=== PATIENT | female | born 1975 | race Two or more races ===

== ENCOUNTER 2024-09-30 06:30 | Emergency (ER) | payer BC, SELFPAY ==
[2024-09-30 06:30] VITALS: BMI 27.1
--- NOTE | 2024-09-30 06:39 | EKG_ITS ---
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
--- NOTE | 2024-09-30 07:02 | XR_ITS ---
Examination: CT abdomen and pelvis without contrast. Coronal 3-D reconstructions. Sagittal 2-D reconstructions. Date and time of exam:September 30, 2024 at 0932 hours Comparison November 24, 2021 INDICATIONS: Onset generalized abdominal pain today CTDI: vol (mGy): 8.84 DLP: (mGycm): 479 Technique: Axial images of the abdomen have been obtained, 3 mm slice thickness Intravenous contrast material has not been administered. Low dose protocols were performed. One or more of the following dose reduction techniques were used; automated exposure control, adjustment of the mA and/or KV according to patient size, use of iterative reconstruction technique. Findings: No focal liver or splenic lesions Absent gallbladder No pancreatic mass No renal or ureteral calculi, no hydronephrosis Aorta normal size Normal appendix No bowel obstruction Anteverted uterus with no adnexal mass Urinary bladder intact 4 mm central left paracentral L5-S1 disc bulge IMPRESSION: No renal or ureteral calculi, no hydronephrosis No bowel obstruction Normal appendix
[2024-09-30 07:05] VITALS: BP 124/88; PULSE 95; RESP 17; TEMP 36.7; O2SAT 98
--- NOTE | 2024-09-30 07:11 | PD.EDRME ---
Rapid Medical Screening Exam RME Arrival date/time: 09/30/24 06:30 49-year-old female presents to the emergency department today for complaints of abdominal pain and heart palpitations Chief Complaint: Abdominal Pain Vital signs: Vital Signs Temperature 98.0 F 09/30/24 07:05 Pulse Rate 95 09/30/24 07:05 Respiratory Rate 17 09/30/24 07:05 Blood Pressure 124/88 H 09/30/24 07:05 Pulse Oximetry (%) 98 09/30/24 07:05 Oxygen Delivery Method Room Air 09/30/24 07:05
[2024-09-30] MEDS: KETOROLAC INJ 30 MG/ML VIAL IM (07:22)
[2024-09-30 08:27] LABS: Collection Type, Urine Clean Catch
[2024-09-30 08:31] LABS: Basophils % (Auto) 0 % (0-2.5); Eosinophils # (Auto) 0.1 Thou/mm3 (0.0-0.5); Eosinophils % (Auto) 1 % (0-10); Hematocrit 36.7 % (36.0-46.0); Hemoglobin 12.5 g/dL (12.0-16.0); Immature Granulocytes % (Auto) 0 % (0-0); Immature Granulocytes Auto 0.01 Thou/mm3 (0.00-0.00); Lymphocytes # (Auto) 0.7 Thou/mm3 (1.0-4.8); Lymphocytes % (Auto) 13 % (10-50); Mean Corpuscular HGB Conc 34.1 g/dl (31.0-37.0); Mean Corpuscular Hemoglobin 29.4 pg (25.0-35.0); Mean Corpuscular Volume 86 fL (80-100); Monocytes # (Auto) 0.3 Thou/mm3 (0.0-0.8); Monocytes % (Auto) 5 % (0-12); Neutrophils # (Auto) 4.5 Thou/mm3 (1.8-7.7); Neutrophils % (Auto) 80 % (37-80); Nucleated Red Blood Cell % 0 /100 WBC (0); Platelet Count 150 Thou/mm3 (140-440); RDW Standard Deviation 42.4 fL (36.4-46.3); Red Blood Count 4.25 Miln/mm3 (4.00-5.20); White Blood Count 5.6 Thou/mm3 (3.6-11.0)
[2024-09-30 08:38] LABS: Bilirubin,Urine Negative (Negative); Blood,Urine Negative (Negative); Clarity,Urine Clear (Clear/Hazy); Color,Urine Lt-Yellow (Lt Yel-Yel); Culture Indicated,Urine Not Indicated; Glucose, Urine Negative (Negative); Ketones,Urine Negative (Negative); Leukocyte Esterase,Urine Negative (Negative); Nitrite,Urine Negative (Negative); PH,Urine 6.5 (5.0-7.0); Protein,Urine Negative (Neg - Trace); RBC,Urine 1 /hpf (0-3); Specific Gravity,Urine 1.012 (1.001-1.035); Squamous Epithelial Cell,Urine 1 /hpf (0-5); Urobilinogen,Urine Negative mg/dL (0.0-1.0); WBC,Urine < 1 /hpf (0-5)
[2024-09-30 08:49] LABS: HCG Qualitative,Urine Negative
[2024-09-30 08:56] LABS: Alanine Aminotransferase 9 U/L (10-49); Albumin, Serum 4.1 gm/dL (3.5-5.0); Albumin/Globulin Ratio 1.8 (1.2-2.2); Alkaline Phosphatase 35 U/L (46-116); Anion Gap 9 (7-16); Aspartate Amino Transferase 12 U/L (0-34); BUN/Creatinine Ratio 11 Ratio (12-20); Bilirubin,Total 0.8 mg/dL (0.3-1.2); Blood Urea Nitrogen 9 mg/dL (9-23); Calcium 8.6 mg/dL (8.3-10.6); Calcium (Corrected) 8.6 mg/dL (8.5-10.1); Carbon Dioxide 26.7 mMol/L (20.0-31.0); Chloride 108 mMol/L (98-107); Creatinine (Component) 0.8 mg/dL (0.6-1.3); Estimated Creatinine Clearance 87.5 mL/min (>60); Free T4 (Free Thyroxine) 1.19 ng/dL (0.89-1.76); Globulin 2.3 gm/dL (2.3-3.5); Glucose 106 mg/dL (74-106); Lipase 29 U/L (12-53); Osmolality,Calculated 285 (275-295); Sodium 144 mMol/L (136-145); Thyroid Stimulating Hormone 0.71 uIU/mL (0.55-4.78); Total Protein 6.4 gm/dL (5.7-8.2); Troponin I < 0.002 ng/mL (0.0-0.045); eGFR > 60 See Note
[2024-09-30 11:13] LABS: Troponin I < 0.020 ng/mL (0.0-0.045)
--- NOTE | 2024-09-30 12:02 | EDNOTE_ITS ---
ED General RME/HPI General Chief complaint: Abdominal Pain Stated complaint: ABD PAIN AND FAST HR Time Seen by Provider: 09/30/24 10:48 Arrival date/time: 09/30/24 06:30 49-year-old female presents to the emergency department today for complaints of abdominal pain and heart palpitations Limitations: no limitations RME / HPI RME / HPI narrative: 09/30/24 06:30 49-year-old female presents to the emergency department today for complaints of abdominal pain and heart palpitations Related Data Home Medications ?Medication ?Instructions ?Recorded ?Confirmed omeprazole 20 mg capsule,delayed 20 mg PO BID 04/17/23 05/24/23 release Previous Rx's ?Medication ?Instructions ?Recorded docusate sodium 100 mg capsule 100 mg PO BID #40 caps 05/25/23 (Colace) hydrocodone 5 mg-acetaminophen 325 1 tab PO Q6H PRN pa in (scale score 05/25/23 mg tablet 7-10) #20 tabs ibuprofen 600 mg tablet 600 mg PO Q8H PRN pain (scal e 05/25/23 score 4-6) #15 tabs alprazolam 0.25 mg tablet (Xanax) 0.25 mg PO BID PRN a nxiety #14 tabs 10/06/23 hydrocodone 5 mg-acetaminophen 325 1 tab PO BID PRN pa in #10 tabs 09/30/24 mg tablet Allergies Allergy/AdvReac Type Severity Reaction Status Date / Time No Known Allergies Allergy Verified 09/30/24 06:30 Review of Systems Review of Systems Systems Reviewed: All systems reviewed, normal except as documented Constitutional Constitutional: Reports system reviewed and no additional complaints, except as documented, Denies fever(s) and Denies headache(s) Eyes Eyes: Reports system reviewed and no additional complaints, except as documented and Denies blurry vision ENT Ears, Nose, Mouth, and Throat: Reports system reviewed and no additional complaints, except as documented, Denies headache(s), Denies nasal congestion and Denies nasal discharge Cardiovascular Cardiovascular: Reports system reviewed and no additional complaints, except as documented, Denies chest pain, Denies dyspnea, Denies lightheadedness and Reports other (Palpitations) Respiratory Respiratory: Reports system reviewed and no additional complaints, except as documented, Denies chest congestion, Denies cough and Denies dyspnea Gastrointestinal Gastrointestinal: Reports system reviewed and no additional complaints, except as documented and Reports abdominal pain Integumentary/Breasts Skin/Breast: Reports system reviewed and no additional complaints, except as documented and Denies rash Neurologic Neurologic: Reports system reviewed and no additional complaints, except as documented, Reports as per HPI and Denies headache(s) Past Medical History Past Medical History NEUROLOGIC: Negative Neurological Disorders or Seizures CARDIAC: Positive Heart Murmur (found at 13 yrs, never seen cardiology); Negative Cardiac Disorders or Congestive Heart Failure RESPIRATORY: Negative Chronic Obstructive Pulmonary Disease (COPD) or Asthma GASTROINTESTINAL: Positive Gastrointestinal Disorders, Gall Bladder Disease and Gastroesophageal Reflux Disease; Negative Hepatitis GENITOURINARY: Negative Genitourinary Disorders or Renal Disease REPRODUCTIVE: Positive Previous Pregnancies (2) MUSCULOSKELETAL: Positive Musculoskeletal Disorders, Arthritis, Osteoporosis and Fibromyalgia ENDOCRINE: Negative Endocrine Disorders, Diabetes Mellitus Type 1 or Diabetes Mellitus Type 2 HEMATOLOGIC: Negative Blood Disorders or Sickle Cell Disease OTHER HISTORY: Negative Hospitalization, Autoimmune Disease, Shingles, Falls, Blood Transfusions, Blood Transfusion Reaction, Anesthesia Reactions, Chemotherapy, Radiation Therapy, MRSA, Chicken Pox, Measles, Mumps or Cancer Family History FAMILY HISTORY: Positive Family Cardiac Disorders and Family Cancer; Negative Family Psychiatric Problems, Family Respiratory Disorders, Family Gastrointestinal Problems, Family Surgery or Family Anesthesia Reaction Surgical History SURGICAL: Positive Abdominal Surgery; Negative Cardiac Surgery or Endocrine Surgery Social History SMOKING STATUS: Never smoker SUBSTANCE USE: does not use ED Exam General Limitations: Present no limitations General appearance: Present alert and in no apparent distress Head Head exam: Present atraumatic, normocephalic and normal inspection Eye Eye exam: Present normal appearance, PERRL and EOMI; Absent conjunctival injection ENT ENT exam: Present normal exam, normal oropharynx and mucous membranes moist Neck Neck exam: Present normal inspection, full ROM and trachea midline Chest Chest inspection: Present normal inspection and symmetric chest wall rise Respiratory Respiratory exam: Present normal lung sounds bilaterally; Absent respiratory distress Cardiovascular Cardiovascular exam: Present regular rate, normal rhythm and normal heart sounds; Absent bradycardia, tachycardia, irregular rhythm, systolic murmur, diastolic murmur or JVD Abdominal Exam Abdominal exam: Present soft and normal bowel sounds; Absent distention, tenderness, guarding, rebound or rigidity Extremities Exam Extremities exam: Present normal inspection and full ROM Back Exam Back exam: Present normal inspection and full ROM Neurological Exam Neurological exam: Present alert, oriented X3, CN II-XII intact, normal gait and reflexes normal; Absent motor sensory deficit Psychiatric Psychiatric exam: Present normal affect and normal mood Skin Skin exam: Present warm, dry, intact and normal color Course Quality Measures none Orders Category Date Time Status EKG (ED ONLY) *Do not use* NOW Care 09/30/24 06:[address] abdomen pelvis wo con Stat Exams 09/30/24 07:02 Completed EKG (ED Only) Stat Exams 09/30/24 06:39 Draft CBC Stat Lab 09/30/24 08:15 Completed Comprehensive Metabolic Panel Stat Lab 09/30/24 08:15 Completed Free T4 (Free Thyroxine) Stat Lab 09/30/24 08:15 Completed HCG Qualitative,Urine Stat Lab 09/30/24 07:30 Completed Lipase Stat Lab 09/30/24 08:15 Completed TSH [Thyroid Stimulating Hormone] Stat Lab 09/30/24 08:15 Completed Troponin I Stat Lab 09/30/24 08:15 Completed Troponin I Stat Lab 09/30/24 10:44 Completed UA, C/S IF [Urinalysis, C/S if Indicated] Stat Lab 09/30/24 07:30 Completed Ketorolac Inj [Toradol Inj] Med 09/30/24 07:04 Discontinued 30 mg IM X1 ONE Vital Signs Vital signs: Vital Signs Temperature 98.0 F 09/30/24 07:05 Pulse Rate 95 09/30/24 07:05 Respiratory Rate 17 09/30/24 07:05 Blood Pressure 124/88 H 09/30/24 07:05 Pulse Oximetry (%) 98 09/30/24 07:05 Oxygen Delivery Method Room Air 09/30/24 07:05 O2 saturation 98% on room air within the limits Procedures -ED EKG Interpretation #1: Date of EK09/30/24 Time of EK:19 Rate: 96 Interpretation: Interpreted by me EKG Impression: Normal sinus rhythm, No acute ST-T changes, No ectopy, No ischemic changes and Non-specific ST-T Discharge Plan Plan Patient Disposition: HOME (Self Care) Discharge Disposition comment: Stable Prescriptions/Referrals Prescriptions/Med Rec: New hydrocodone-acetaminophen 5-325 mg tablet 1 tab PO BID MDD 10 PRN (Reason: pain) Qty: 10 0RF No Action alprazolam [Xanax] 0.25 mg tablet 0.25 mg PO BID PRN (Reason: anxiety) Qty: 14 0RF omeprazole 20 mg Capsule,Delayed Release(Dr/Ec) 20 mg PO BID docusate sodium [Colace] 100 mg capsule 100 mg PO BID Qty: 40 0RF hydrocodone-acetaminophen 5-325 mg tablet 1 tab PO Q6H MDD 4 PRN (Reason: pain (scale score 7-10)) Qty: 20 0RF ibuprofen 600 mg tablet 600 mg PO Q8H PRN (Reason: pain (scale score 4-6)) Qty: 15 0RF Referrals: Gloria Dan MD [Primary Care Provider] - 10/01/24 Problem List Clinical Impression: Abdominal pain, Palpitation Patient/Caregiver Discharge Instructions Education Materials: Abdominal Pain Additional Instructions: Please follow up with your primary care doctor in the next 24-48hrs for any worsening symptoms return here immediately Print Language: Pashto Stand Alone Forms: Tavia Award Info., Work/School Release, Patient Portal Info Letter 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 Pinedo MDM Narrative Sign Out note: 49-year-old female presents to the emergency department today for complaints of abdominal pain and heart palpitations On exam patient well-appearing patient does not appear ill or toxic no acute distress Lab work and imaging obtained no acute emergent findings noted EKG obtained no acute emergent findings noted negative troponin x 2 Patient discharged home in no distress to follow-up with primary care doctor in the next 24 to 48 hours and for any worsening symptoms to return to the ER immediately Clinical Information Provided by: patient Medical Records reviewed [facility] Meds/Rx considered, not ordered None Labs/Rad/Tests considered, not ordered Describe: Labs and imaging obtained Chronic Illness/Social Conditions which may negatively complicate care or outcome(s)-explain: None or not applicable Labs Labs: Interpreted by oh Lab(s) Interpretation(s): Labs obtained reviewed by oh Imaging Imaging interpretation: Interpreted by oh Medication Administration(s) Medication Administration History Discontinued Medications Ketorolac Tromethamine (Ketorolac Inj 30 Mg/Ml Vial) 30 mg IM X1 ONE Stop: 09/30/24 07:05 Last Admin: 09/30/24 07:22 Dose: 30 mg Documented By: ER Given Diagnosis Differential Diagnosis ED Complaint MDM: Stress reaction, anxiety, abdominal pain, chest pain, palpitations
[2024-09-30 12:15] VITALS: BP 122/86; PULSE 88; RESP 18; TEMP 36.7; O2SAT 98
== END 2024-09-30 12:18 | disposition home or self-care (01) ==
PROVIDERS: Nurse Practitioner Primary Care; Emergency Provider Emergency Medicine; PCP Family Medicine
DX: R10.9 Unspecified abdominal pain (principal); R00.2 Palpitations; R94.31 Abnormal electrocardiogram [ECG] [EKG]
CPT/HCPCS: 36415; 74176; 80053; 81001; 81025; 83690; 84439; 84443; 84484; 85025; 93005; 96372; 99284; J1885